=== PATIENT | female | born 1960 | race Caucasian/White ===

== ENCOUNTER 2021-06-26 09:48 | Emergency (ER) | payer BC ==
[~2021-06-26] VITALS: Ht 170.2 cm; Wt 56.7 kg
--- NOTE | 2021-06-26 10:02 | NUR ---
Dr Nicholson at the bedside for MSE.
[2021-06-26] MEDS ORDERED: MAG HYDROX/AL HYDROX/SIMETH 30 ML LIQUID UDC ONE (10:10)
[2021-06-26] MEDS ORDERED: KETOROLAC TROMETHAMINE 15 MG INJ ONE (10:10)
[2021-06-26] MEDS ORDERED: FAMOTIDINE. 20 MG/2 ML VIAL IV ONE ×2 (10:11→10:30)
[2021-06-26] MEDS ORDERED: IOHEXOL 300MG/ML 100 ML INFUS..BTL ONE (10:13)
[2021-06-26] MEDS ORDERED: SWABABLE VALVE TRANSFER SET EA MC ONE (10:14)
--- NOTE | 2021-06-26 10:14 | NUR ---
Pt provided urine sample, sent to lab.
[2021-06-26] MEDS ORDERED: FAMOTIDINE 20 MG TABLET PO ONE (10:15)
[2021-06-26] MEDS ORDERED: KETOROLAC TROMETHAMINE 15 MG INJ IVP ONE (10:15)
[2021-06-26] MEDS ORDERED: IV NORMAL SALINE 100 ML BAG IV ONE (10:15)
[2021-06-26] MEDS ORDERED: MAG HYDROX/AL HYDROX/SIMETH 30 ML LIQUID UDC PO ONE (10:15)
[2021-06-26 10:18] LABS: *BILIRUBIN,URIN NEGATIVE (NEGATIVE); *BLOOD, URINE 1+ (NEGATIVE); *CLARITY,URINE CLEAR (CLEAR); *COLOR,URINE YELLOW (YELLOW); *KETONES,URINE NEGATIVE (NEGATIVE); *URINE HCG, QUAL NEG (NEGATIVE); *UROBILINOGEN,URINE 0.2 E.U./dl (NORMAL); LEUKOCYTE ESTERASE ,URINE NEGATIVE (NEGATIVE); NITRITE, URINE NEGATIVE (NEGATIVE); PH,URINE 5.5 (5.0-8.0); UGLUCOSE NEGATIVE (NEGATIVE)
[2021-06-26 10:25] LABS: HEMATOCRIT 39.2 % (31.2-41.9); MEAN CORPUSCULAR HEMOGLOBIN 33.1 uug (24.7-32.8); MEAN CORPUSCULAR VOLUME 96.1 fL (75.5-95.3); PLATELET COUNT (AUTO) 257 K/uL (179-408)
--- NOTE | 2021-06-26 10:32 | NUR ---
Pt signed consent for IV contrasted Ct scan, placed in the chart.
[2021-06-26 10:35] LABS: CREATININE 0.8 mg/dL (0.6-1.3)
[2021-06-26 10:41] LABS: BILIRUBIN,TOTAL 0.5 mg/dL (0.2-1.0); TOTAL PROTEIN, SERUM 7.2 g/dL (6.4-8.2)
[2021-06-26] MEDS ORDERED: CIPR500T5 PO (11:27)
[2021-06-26] MEDS ORDERED: OMEP20CA15 PO (11:33)
[2021-06-26] MEDS ORDERED: METR500T PO (11:35)
[2021-06-26] MEDS ORDERED: MAG355OR18 PO (11:35)
--- NOTE | 2021-06-26 11:47 | NUR ---
IV removed. Catheter intact and site benign. Pressure and 4x4 gauze applied to site. No bleeding noted.
--- NOTE | 2021-06-26 11:47 | NUR ---
Patient discharged to home in stable condition. Written and verbal after care instructions given. Patient verbalizes understanding of instructions. Stressed follow up or return to ER for worsening s/s.
[2021-06-26 11:48] VITALS: BP 111/60
[2021-06-26 17:07] LABS: BACTERIA,URINE FEW /HPF (NONE SEEN); SQUAMOUS EPITHELIAL CELL,UR MODERATE /HPF (NONE SEEN)
[2021-06-26 17:08] LABS: MUCUS,URINE FEW /LPF (0-FEW)
== END 2021-06-26 11:50 | disposition home or self-care (01) ==
LOC: ER 09:48
DX: K52.9 Noninfective gastroenteritis and colitis, unspecified (principal); R10.84 Generalized abdominal pain; F17.210 Nicotine dependence, cigarettes, uncomplicated
CPT/HCPCS: 36415; 74177; 80053; 81001; 83690; 84703; 85025; 96361; 96374; 96375; 99285; J1885; J3490; Q9967; A4663